=== PATIENT | female | born 1970 | race African-American/Black ===

== ENCOUNTER 2024-04-17 11:29 | Emergency (ER) | payer SELFPAY ==
[~2024-04-17] VITALS: Ht 167.6 cm; Wt 79.0 kg
[2024-04-17 11:41] VITALS: BP 148/94; PULSE 93; RESP 18; TEMP 98; O2SAT 98
[2024-04-17] MEDS ORDERED: CEPH-588 PO (12:39)
[2024-04-17] MEDS ORDERED: SULF-59 PO (12:39)
[2024-04-17] MEDS: BACITRACIN OINT 500 UNITS/GM PKT TP ONE (12:48)
== END 2024-04-17 13:24 | disposition home or self-care (01) ==
LOC: MED 11:29
DX: S40.811A Abrasion of right upper arm, initial encounter (principal); L08.89 Other specified local infections of the skin and subcutaneous tissue; Z79.899 Other long term (current) drug therapy; X58.XXXA Exposure to other specified factors, initial encounter; Y92.89 Other specified places as the place of occurrence of the external cause; Y93.89 Activity, other specified; Y99.8 Other external cause status
CPT/HCPCS: 99283